=== PATIENT | female | born 1955 | race Caucasian/White ===

== ENCOUNTER 2020-01-09 19:09 | Inpatient (IN) | payer MEDICAID, OTHER ==
[2020-01-09] MEDS ORDERED: Maalox 30 mL Cup PO PRN (19:51)
[2020-01-09] MEDS ORDERED: Magnesium Hydroxide (MOM) 30 mL UDC PO PRN (19:51)
[2020-01-09 20:01] VITALS: BP 141/79
[2020-01-09] MEDS: Acetaminophen 500 MG TAB PO PRN (21:59)
[2020-01-10] MEDS: Acetaminophen 500 MG TAB PO PRN ×2 (04:08→11:51)
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
--- NOTE | 2020-01-10 15:41 | History and Physical ---
History of Present Illness - HPI Chief Complaint: Acute Psychosis HPI: * Patient is 64 y/o White female who has bee admitted on 5150 hold * Transferred from [facility] Vital Signs: Last Vital Signs Temp 97.2 F 01/10/20 15:07 Pulse 76 01/10/20 15:07 Resp 20 01/10/20 15:07 BP 134/73 01/10/20 15:07 Pulse Ox 96 01/10/20 15:07 Past Medical History Cardiovascular: Report: No Pertinent Hx Pulmonary: Report: No Pertinent Hx SOAP MIXER: Report: No Pertinent Hx GI: Report: No Pertinent Hx Psych: Report: Bipolar, Psychosis Musculoskeletal: Report: Low Back Pain Rheumatologic: Report: No pertinent Hx Infectious Disease: Report: No Pertinent Hx Renal/: Report: No Pertinent Hx Endocrine: Report: No Pertinent Hx Dermatology: Report: No Pertinent Hx - Past Surgical History Past Surgical History: Other Social History Smoke: No Alcohol: None Drugs: None - Allergies Allergies/Adverse Reactions: Allergies Allergy/AdvReac Type Severity Reaction Status Date / Time No Known Allergies Allergy Verified 01/09/20 19:44 Review of Systems - Review of Systems Constitutional: Report: No Significant Eyes: Report: No Significant ENT: Report: No Significant Respiratory: Report: No Significant Cardiovascular: Report: No Significant Gastrointestinal: Report: No Significant Genitourinary: Report: No Significant Musculoskeletal: Report: Shoulder Pain, Back Pain, Leg Pain Skin: Report: No Significant Neurological: Report: No Significant Physical Exam - Physical Exam HEENT: Report: Ears Nose Throat within normal limits, Pharnyx within normal limits Neck: Report: Within normal limits Cardiovascular Systems: Report: Regular, Rate and Rhythm, no murmurs noted Respiratory: Report: Clear to Auscultation of lung albarado, Breath Sounds are within normal limits Abdomen: Report: Non-tender to palpation, Bowel Sounds are within normal limits Back: Report: Other (Midline tenderness) Extremities: Report: Non-tender to palpation., Patient had full range of motion , No pedal edema was noted on inspection Skin: Report: Color of skin is within normal limits, Warm, Dry, No Rashes noted of the skin Neuro/Psych: Report: A+Ox3, CN II-XII intact, No motor deficit, No sensory deficit, No new focal deficits - Lab Results All Lab Results last 24 hours: Laboratory Results - last 24 hr 01/09/20 19:37 POC Glucose 86 - Assessment Assessment: * Acute Psychosis * 5150 Hold * Bipolar Disorder (Mixed) * Low Back Pain * S/P Left Knee Surgery - Plan Plan: * Admit to [facility] * Psychiatry Consult * Continue home meds * Continue pain management * Obtain labs in am Cranial Nerve Assessment - CRANIAL NERVES alcohol swab:: Yes Distinguishes movements in peripheral field.:: Yes up, down, sideways:: Yes on forehead, cheeks and chin, chews symmetrically:: Yes FACIAL VII: upper: Frowns Symmetrically:: Yes FACIAL VII: Lower: Smiles Symmetrically:: Yes both ears:: Yes GLOSS-PHARYNGEAL IX: Has gag reflex:: Yes VAGUS X: Can make guttural sounds:: Yes ACCESSORY XI: Shrugs shoulders symmetrically:: Yes tremors or fasciculation's:: Yes - MOTOR spasticity, cogwheel, atrophy, tremor, asterixis, other: Yes - COORDINATION Finger to nose, heel to christensen, FAN, gait, Romberg: Yes - SENSORY signs, Brudzinski, Kernig, neck rigidity:: Yes - REFLEXES Brachioradials Right:: Yes Brachioradials Left:: Yes Biceps Right:: Yes Biceps Left:: Yes Triceps Right:: Yes Triceps Left:: Yes Knee Right:: Yes Knee Left:: Yes Ankle Right:: Yes Ankle Left:: Yes Babinski Right:: No Babinski Left:: No
[2020-01-10] MEDS: Acetaminophen 500 MG TAB PO SCH ×2 (16:42→22:00)
[2020-01-11] MEDS: Acetaminophen 500 MG TAB PO SCH ×4 (04:02→22:08)
--- NOTE | 2020-01-11 11:35 | Progress Notes ---
DATE: 01/11/2020 SUBJECTIVE: Staff was spoken to. The patient is interviewed. Mood is noted to be irritable. Affect is constricted. Mood swings are noted. The patient is refusing to take the Seroquel, but has taken the Depakote. The patient is very demanding. The patient's insight and judgment are noted to be very much impaired. The patient is stating that she has been in pain and needs to be getting more pain medications rather than psych medications. The patient at this time is presenting more as a behavioral problem at this time. PLAN: To continue the patient with the current medications and increase the dose on the Depakote to 500 mg twice a day and follow the patient. JOB# [id number]
[2020-01-12] MEDS: Acetaminophen 500 MG TAB PO SCH ×4 (03:59→21:20)
--- NOTE | 2020-01-12 19:12 | Progress Notes ---
DATE: 01/12/2020 PSYCHIATRIC PROGRESS NOTE SUBJECTIVE: Staff was spoken to. The patient is interviewed. Mood is noted to be irritable. Affect is constricted. Insight and judgment are noted to be still impaired. Impulse control is noted to be limited. The patient is argumentative. The patient is reluctant to take the medications. No side effects to medications are noted. ASSESSMENT: The patient is still impulsive and having mood swings. PLAN: To continue the patient with the current medications and followup. JOB# [id number]
[2020-01-12] MEDS ORDERED: Hydrocodone/APAP 5mg/325mg Tab PO PRN (19:23)
[2020-01-13] MEDS: Acetaminophen 500 MG TAB PO SCH ×4 (04:09→21:28)
[2020-01-13] MEDS ORDERED: Haloperidol Lactate 5 mg/mL 1mL Vial IM ONE ×2 (09:14→09:49)
--- NOTE | 2020-01-13 17:48 | Progress Notes ---
DATE: 01/13/2020 SUBJECTIVE: Staff was spoken to. The patient is interviewed. Staff reported that the patient is very agitated since this morning. The patient has been very intrusive and impulsive and has been cursing the staff out. The patient is very hard to be redirected at this time. The patient has been advised to be on an emergency dose of medications. The patient at this time is screaming and yelling I am not able to reason with her. ASSESSMENT: The patient is still agitated and impulsive. PLAN: To proceed with the emergency dose of medications and follow the patient's case investigator. The social studies department chair have been spoken to and they are not able to arrange the transportation they have to wait for a nonprofit organization to arrange the transportation and they have to wait until the 01/15/2020 for arrangement of the transportation. ASSESSMENT: The patient is still impulsive and is not ready to be discharged to a lower level of care. JOB# [id number]
[2020-01-14] MEDS: Acetaminophen 500 MG TAB PO SCH ×4 (04:15→22:23)
--- NOTE | 2020-01-14 17:05 | Progress Notes ---
DATE: 01/14/2020 SUBJECTIVE: Staff was spoken to. The patient is interviewed. Mood is noted to be irritable. Affect is constricted. The patient is stating that she can take care of herself, she has her own place. She should not be in here and I mentioned that we are looking for her to be discharging back, there is no way that she can get the [place]. The patient is stating that her son is 21, he cannot drive and he is ____ going to pick him up. visitor services associate have been requested to help with the patient's transportation. ASSESSMENT: The patient is stabilizing. PLAN: To continue the patient with the supportive therapy and followup. JOB# [id number]
[2020-01-15] MEDS: Acetaminophen 500 MG TAB PO SCH ×2 (04:05→09:06)
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
== END 2020-01-15 13:51 | disposition home or self-care (01) | DRG 885 ==
LOC: GERO 19:20
PROVIDERS: ADMIT Psychiatry & Neurology Psychiatry; ATTEND Psychiatry & Neurology Psychiatry
DX: F31.60 Bipolar disorder, current episode mixed, unspecified (principal); F29 Unspecified psychosis not due to a substance or known physiological condition; Z79.899 Other long term (current) drug therapy; Z98.890 Other specified postprocedural states; M54.5 Low back pain
CPT/HCPCS: 82948-90; 83036-90; G0410; J1200; J1630; J2060; Z7610